=== PATIENT | female | born 1935 | race Caucasian/White ===

== ENCOUNTER 2021-07-06 15:14 | Emergency (ER) | payer MEDICARE ==
[2021-07-06 17:32] LABS: BASOPHIL 0 % (0-2); EOSINOPHIL 0 % (0-7); HCT 46.1 % (37.0-47.0); HGB 15.2 g/dl (12.5-16.0); LYMPHOCYTE 20.5 % (15-48); MCH 31.4 pg (25.0-31.0); MCV 95.2 fL (78.0-100.0); MONOCYTE 6.1 % (0-12); MPV 10.7 fL (6.0-9.5); NEUTROPHIL 72.6 % (41-80); NRBC 0; PLT 140 K/uL (150-400); RBC 4.84 M/uL (4.20-5.40); RDW 12.8 % (11.5-14.0); WBC 5.3 K/uL (4.0-10.5)
[2021-07-06 17:46] LABS: BUN/CREAT RATIO (CALC) 23.4 RATIO; CREATININE 0.77 mg/dL (0.51-0.95); POTASSIUM 4.1 mmol/L (3.5-5.1); URIC ACID 4.6 mg/dL (2.6-6.2)
== END 2021-07-06 21:00 | disposition home or self-care (01) ==
LOC: FER 15:14
PROVIDERS: Nurse Practitioner Family
DX: M79.671 Pain in right foot (principal); R60.0 Localized edema; I25.2 Old myocardial infarction; I48.91 Unspecified atrial fibrillation; Z79.01 Long term (current) use of anticoagulants; Z28.310 Unvaccinated for COVID-19
CPT/HCPCS: 36415; 73610; 80048; 84550; 85025; 93971